=== PATIENT | female | born 1985 | race Caucasian/White ===

== ENCOUNTER 2018-10-23 16:38 | Emergency (ER) | payer OTHER ==
--- NOTE | 2018-10-23 16:57 | EDPHY ---
H & P Time Seen by Provider: 10/23/18 16:55 HPI/ROS: CHIEF COMPLAINT: Shortness of breath and right shoulder pain HISTORY OF PRESENT ILLNESS: 33-year-old female here with a history of anxiety reporting 1 week of constant sensation of shortness of breath. She does report that occasionally she gets some right shoulder pain with her shortness of breath and that the shortness of breath can get worse at times with exertion. She denies any cough, fever, leg swelling, history of pulmonary embolism, history of hypertension or other cardiac disease. States that earlier this year she had a similar episode which self-resolved. She denies any drug or alcohol use. She does have history of anemia but does not order current hemoglobin is. She denies lightheadedness or syncope. REVIEW OF SYSTEMS: Constitutional: No fever, no chills. Eyes: No discharge. ENT: No sore throat. Cardiovascular: No chest pain, no palpitations. Respiratory: No cough, + shortness of breath. Gastrointestinal: No abdominal pain, no vomiting. Genitourinary: No hematuria. Musculoskeletal: No back pain. Skin: No rashes. Neurological: No headache. Smoking Status: Never smoked Physical Exam: General Appearance: Alert and no distress. ENT: normal dentition. No tonsillar exudate or swelling. Eyes: Pupils equal and round no injection. Respiratory: Chest is nontender, lungs are clear to auscultation. Cardiac: regular rate and rhythm. No lower extremity edema Gastrointestinal: Abdomen is soft and nontender, no masses, bowel sounds normal. Musculoskeletal: Neck is supple and nontender. Extremities have full range of motion and are nontender without deformity. No unilateral calf swelling or lower extremity edema. Skin: No rashes or lesions. Neuro: Cranial nerves grossly intact. No nystagmus. Ambulatory. Constitutional: Initial Vital Signs Temperature (C) 36.7 C 10/23/18 16:41 Heart Rate 92 10/23/18 16:41 Respiratory Rate 16 10/23/18 16:41 Blood Pressure 111/86 H 10/23/18 16:41 O2 Sat (%) 98 10/23/18 16:41 O2 Delivery Mode Room Air Allergies/Adverse Reactions: No Known Allergies Allergy (Unverified 10/23/18 16:41) Home Medications: [facility] Medical Decision Making - Diagnostics Imaging Results: Imaging Impressions Chest X-Ray 10/23/18 17:04 Impression: No acute cardiopulmonary process. ED Course/Re-evaluation: 33-year-old female with no significant past medical history here with 1 week of intermittent shortness of breath. She is afebrile not tachycardic and not hypoxic on arrival in the emergency room. EKG reveals normal sinus rhythm without any ischemic changes. Troponin is negative for ischemia. D-dimer less than 250. Chest x-ray is unremarkable shows no signs of pulmonary edema, infiltrate or cardiomegaly. Labs show no anemia or electrolyte disturbance. Patient agrees to close follow-up with her primary care physician for further workup. - Data Points Laboratory Results: Laboratory Results 10/23/18 17:16 10/23/18 17:16 10/23/18 10/23/18 10/23/18 17:20 17:16 17:16 WBC RBC Hgb Hct MCV MCH MCHC RDW Plt Count MPV Neut % (Auto) Lymph % (Auto) [place] % (Auto) Eos % (Auto) Baso % (Auto) Nucleat RBC Rel Count Absolute Neuts (auto) Absolute Lymphs (auto) Absolute Monos (auto) Absolute Eos (auto) Absolute Basos (auto) Absolute Nucleated RBC Immature Gran % Immature Gran # D-Dimer Sodium 140 mEq/L mEq/L (135-145) Potassium 4.2 mEq/L mEq/L (3.5-5.2) Chloride 108 mEq/L mEq/L (97-110) Carbon Dioxide 22 mEq/l mEq/l (22-31) Anion Gap 10 mEq/L mEq/L (6-14) BUN 8 mg/dL mg/dL (7-23) Creatinine 0.7 mg/dL mg/dL (0.6-1.0) Estimated GFR > 60 Glucose 91 mg/dL mg/dL (70-100) Calcium 9.1 mg/dL mg/dL (8.5-10.4) POC Troponin I 0.00 ng/mL ng/mL (0.00-0.08) Beta HCG, Qual NEGATIVE 10/23/18 10/23/18 17:16 17:16 WBC 6.91 10^3/uL 10^3/uL (3.80-9.50) RBC 4.59 10^6/uL 10^6/uL (4.18-5.33) Hgb 14.9 g/dL g/dL (12.6-16.3) Hct 42.6 % % (38.0-47.0) MCV 92.8 fL fL (81.5-99.8) MCH 32.5 pg pg (27.9-34.1) MCHC 35.0 g/dL g/dL (32.4-36.7) RDW 11.9 % % (11.5-15.2) Plt Count 303 10^3/uL 10^3/uL (150-400) MPV 9.3 fL fL (8.7-11.7) Neut % (Auto) 60.3 % % (39.3-74.2) Lymph % (Auto) 31.1 % % (15.0-45.0) [place] % (Auto) 4.9 % % (4.5-13.0) Eos % (Auto) 2.2 % % (0.6-7.6) Baso % (Auto) 1.2 % % (0.3-1.7) Nucleat RBC Rel Count 0.0 % % (0.0-0.2) Absolute Neuts (auto) 4.17 10^3/uL 10^3/uL (1.70-6.50) Absolute Lymphs (auto) 2.15 10^3/uL 10^3/uL (1.00-3.00) Absolute Monos (auto) 0.34 10^3/uL 10^3/uL (0.30-0.80) Absolute Eos (auto) 0.15 10^3/uL 10^3/uL (0.03-0.40) Absolute Basos (auto) 0.08 10^3/uL 10^3/uL (0.02-0.10) Absolute Nucleated RBC 0.00 10^3/uL 10^3/uL (0-0.01) Immature Gran % 0.3 % % (0.0-1.1) Immature Gran # 0.02 10^3/uL 10^3/uL (0.00-0.10) D-Dimer < 0.27 ug/mLFEU ug/mLFEU (0.00-0.50) Sodium Potassium Chloride Carbon Dioxide Anion Gap BUN Creatinine Estimated GFR Glucose Calcium POC Troponin I Beta HCG, Qual Point of Care Test Results: Chemistry 10/23/18 17:20 POC Troponin I 0.00 ng/mL ng/mL (0.00-0.08) Departure - Departure Disposition: Home, Routine, Self-Care Clinical Impression: Dyspnea Condition: Good Instructions: Shortness of Breath (ED) Additional Instructions: Please make an appointment with her primary care physician to discuss the results from today and additionally to discuss further testing to include pulmonary function testing. Referrals: Neeta Franks MD [Primary Care Provider] - As per Instructions
[2018-10-23 17:31] LABS: PLATELET COUNT 303 10^3/uL (150-400)
[2018-10-23 18:15] VITALS: BP 121/78
--- NOTE | 2018-10-24 06:32 | CPEKG ---
Test Reason : OPEN Blood Pressure : / mmHG Vent. Rate : 087 BPM Atrial Rate : 088 BPM P-R Int : 124 ms QRS Dur : 098 ms QT Int : 381 ms P-R-T Axes : 031 093 045 degrees QTc Int : 459 ms Sinus rhythm Consider right ventricular hypertrophy Confirmed by Jacqueline Yusuf ([id number]) on 10/24/2018 6:31:59 AM Referred By: Confirmed By:Jacqueline Yusuf
== END 2018-10-23 18:13 | disposition home or self-care (01) ==
DX: R06.00 Dyspnea, unspecified (principal); M25.511 Pain in right shoulder; F41.9 Anxiety disorder, unspecified
CPT/HCPCS: 84484-ER